=== PATIENT | male | born 1960 | race American Indian/Alaskan Native ===

== ENCOUNTER 2017-11-17 09:50 | Day surgery (SDC) | payer OTHER ==
[~2017-11-17 09:50] MED LIST: NACL 0.9% 1000 ML 1,000 ML IV SCH
[2017-11-17] MEDS ORDERED: DIPRIVAN 10 MG/ML IV ONE ×2 (13:49)
--- NOTE | 2017-11-17 13:54 | Anesthesia Day of Surgery ---
Anesthesia Day of Surgery - Day of Surgery Patient Examined: Yes Patient H&P Reviewed: Yes Patient is NPO: Yes Beta Blockers: No
--- NOTE | 2017-11-17 13:56 | Anesthesia Consultation ---
Anesthesia Consult and Med Hx - Airway Anesthetic Teeth Evaluation: Good ROM Head & Neck: Adequate Mental/Hyoid Distance: Adequate Mallampati Class: Class III Intubation Access Assessment: Possibly Difficult - Pulmonary Exam CTA: Yes - Cardiac Exam Cardiac Exam: No Murmur - Pre-Operative Health Status ASA Pre-Surgery Classification: ASA3 Proposed Anesthetic Plan: MAC - Pulmonary Hx Smoking: No Hx Asthma: No Hx Respiratory Symptoms: No SOB: No COPD: No Home Oxygen Therapy: No Hx Pneumonia: No Hx Sleep Apnea: No - Cardiovascular System Hx Hypertension: Yes - Other Systems Hx Obesity: Yes
[2017-11-17] MEDS ORDERED: XYLOCAINE MPF 2% ONE (14:00)
[2017-11-17] MEDS ORDERED: WATER FOR IRRIG STERILE ONE (14:05)
[2017-11-17] MEDS ORDERED: WATER FOR IRRIG STERILE IR ONE (14:05)
--- NOTE | 2017-11-17 14:39 | Discharge Summary ---
Short Stay Discharge Plan Activity: advance as tolerated Weight Bearing Status: Weight Bear as Tolerated Diet: regular Follow up with: ISAAC MARTIN MD [Primary Care Provider] - 7 Days
--- NOTE | 2017-11-17 14:39 | Operative Report ---
Operative Report Operative Report: Date of procedure: 11/17/2017 Procedure: Colonoscopy with Multiple Hot Biopsy Polypectomies, Polyp Ablations. Attending physician: Loy Ayala MD Phthalic Acid Purifier: Loy Ayala MD Indication: Patient is a 57-year-old male who presents for screening colonoscopy. This colonoscopy serves to evaluate patient so that treatment may be directed based on the findings. Consent: Informed consent was obtained after advising the patient and family regarding nature of this procedure, its indications, potential benefits as well as possible complications including but not limited to bleeding perforation and adverse reaction to medication, infection as well as other cardiopulmonary complications. An informed written and verbal consent was then obtained after due opportunity was provided for questions and answers. Monitoring: Patient was monitored continuously with pulse oximetry and electrocardiographic recordings as well as blood pressure recordings. Vital signs remained stable throughout this procedure with no untoward events. Preoperative assessment: Patient was assessed immediately prior to this procedure for capacity to tolerate monitored anesthesia care and moderate sedation as well as general anesthesia. Patient's ASA classification is 2, Mallampati class is 2, Hyomental distance is 3. Instrument: Room Choicen video colonoscope Medications: Propofol given intravenously in divided doses. For details please refer to anesthesia records. Description of procedure: Patient was placed in the left lateral decubitus position after achieving sedation, a digital rectal examination was performed following which the colonoscope was introduced into the anal verge and advanced to the cecum which was identified by the cecal valve, the appendiceal orifice, as well as by the cecal strap and direct transillumination. The colonoscope was subsequently withdrawn with careful inspection of all mucosal surfaces. Patient tolerated this procedure well and was subsequently taken to the recovery room. The following findings were noted. Findings: Preparation was relatively poor with substantial retained stool in the cecum ascending colon and proximal transverse colon. Patient hot multiple diverticula in the sigmoid colon. Also, in the sigmoid colon, patient had multiple diminutive polyps. These polyps measured from 3-8 mm. 6 of the polyps were removed by hot biopsy polypectomy. 2 of the polyps were ablated completely. All polyps were flat. In the rectum, patient had a diminutive 7 mm polyp that was flat. This was removed by hot biopsy polypectomy. There was a 3 mm flat polyp was ablated. On the retroflexed view of the anal verge, patient had internal hemorrhoids. Impression: Diminutive sigmoid colon/rectal polyps status post hot biopsy polypectomy. Diminutive sigmoid colon/rectal polyps status post ablation. Diverticula disease of the colon. Internal hemorrhoids. Plan: Follow pathology report. High-fiber diet. Repeat colonoscopy in 1 year, due to Poor colonoscopic preparation.
[2017-11-17 15:01] VITALS: BP 119/50
== END 2017-11-17 09:51 | disposition home or self-care (01) ==
LOC: GIO 09:50
PROVIDERS: ATTEND Internal Medicine Gastroenterology
DX: Z12.11 Encounter for screening for malignant neoplasm of colon (principal); K63.5 Polyp of colon; K57.30 Diverticulosis of large intestine without perforation or abscess without bleeding; I10 Essential (primary) hypertension; E78.00 Pure hypercholesterolemia, unspecified; E66.9 Obesity, unspecified; Z68.34 Body mass index [BMI] 34.0-34.9, adult
CPT/HCPCS: 45384; 45388; 88305; J2704; J7030

== ENCOUNTER 2019-01-11 09:44 | Day surgery (SDC) | payer OTHER ==
[2019-01-11] MEDS ORDERED: XYLOCAINE 1% 20 mL ONE (11:00)
[2019-01-11] MEDS ORDERED: DIPRIVAN 10 MG/ML IV ONE ×2 (11:01)
--- NOTE | 2019-01-11 12:01 | Anesthesia Day of Surgery ---
Anesthesia Day of Surgery - Day of Surgery Patient Examined: Yes Patient H&P Reviewed: Yes Patient is NPO: Yes Raghav's Test: N/A
--- NOTE | 2019-01-11 12:02 | Anesthesia Consultation ---
Anesthesia Consult and Med Hx Date of service: 01/11/19 - Airway ROM Head & Neck: Adequate Mental/Hyoid Distance: Adequate Mallampati Class: Class II Intubation Access Assessment: Probably Good - Pulmonary Exam CTA: Yes - Cardiac Exam Cardiac Exam: RRR - Pre-Operative Health Status ASA Pre-Surgery Classification: ASA2 Proposed Anesthetic Plan: General, MAC - Pulmonary Hx Smoking: Yes Hx Asthma: No Hx Respiratory Symptoms: No SOB: No COPD: No Hx Pneumonia: No Hx Sleep Apnea: No - Cardiovascular System Hx Hypertension: Yes - Other Systems Hx Obesity: Yes
--- NOTE | 2019-01-11 12:04 | Operative Report ---
Operative Report Operative Report: Date of procedure: 01/11/2019 Procedure: Colonoscopy. Attending physician: Loy Ayala MD Coating Mixer: Loy Ayala MD Indication: Patient is a 58-year-old male who presents for colonoscopy, because of personal history of colon polyps. A colonoscopy serves to evaluate patient so that treatment may be directed based on the findings. Consent: Informed consent was obtained after advising the patient and family regarding nature of this procedure, its indications, potential benefits as well as possible complications including but not limited to bleeding perforation and adverse reaction to medication, infection as well as other cardiopulmonary complications. An informed written and verbal consent was then obtained after due opportunity was provided for questions and answers. Monitoring: Patient was monitored continuously with pulse oximetry and electrocardiographic recordings as well as blood pressure recordings. Vital signs remained stable throughout this procedure with no untoward events. Preoperative assessment: Patient was assessed immediately prior to this procedure for capacity to tolerate monitored anesthesia care and moderate sedation as well as general anesthesia. Patient's ASA classification is 2, Mallampati class is 2, Hyomental distance is 3. Instrument: Olympus video colonoscope Medications: Propofol given intravenously in divided doses. For details please refer to anesthesia records. Description of procedure: Patient was placed in the left lateral decubitus position after achieving sedation, a digital rectal examination was performed following which the colonoscope was introduced into the anal verge and advanced to the transverse colon. The colonoscope was subsequently withdrawn because of incremental stool density with poor visualization of the colon secondary to significant retained stool with careful inspection of all mucosal surfaces. Patient tolerated this procedure well and was subsequently taken to the recovery room. The following findings were noted. Findings: The preparation was very poor. Patient has some scattered densely adherent semi-formed and liquid stool . There were diverticula seen in the sigmoid colon and descending colon. The colon was examined to the mid transverse colon. The rest of the colon was not visualized secondary to retained stool. On the retroflexed view at the anal verge, patient had internal hemorrhoids. Impression: Incomplete colonoscopic examination. Retained stool Diverticular disease of the colon. Internal hemorrhoids. Plan: High-fiber diet. Schedule Repeat colonoscopy.
--- NOTE | 2019-01-11 12:05 | Discharge Summary ---
Short Stay Discharge Plan Activity: advance as tolerated Weight Bearing Status: Weight Bear as Tolerated Diet: regular Follow up with: ISAAC MARTIN MD [Primary Care Provider] - 7 Days
[2019-01-11 12:31] VITALS: BP 124/75
--- NOTE | 2019-01-11 13:06 | Post Anesthesia Evaluation ---
- Post Anesthesia Evaluation Patient Participated: Yes Airway Patent: Yes Stable Respiratory Function: Yes Nausea/Vomiting: No Temp > 96.8F: Yes Pain Manageable: Yes Adequeate Hydration: Yes Anesthesia Complications: No Block Receding Appropriately: Not Applicable Patient on Ventilator: No
== END 2019-01-11 09:45 | disposition home or self-care (01) ==
LOC: GIO 09:44
PROVIDERS: ATTEND Internal Medicine Gastroenterology
DX: Z12.11 Encounter for screening for malignant neoplasm of colon (principal); K57.30 Diverticulosis of large intestine without perforation or abscess without bleeding; K64.8 Other hemorrhoids; F17.210 Nicotine dependence, cigarettes, uncomplicated; E78.00 Pure hypercholesterolemia, unspecified; I10 Essential (primary) hypertension; E66.9 Obesity, unspecified; Z86.010 Personal history of colon polyps; Z79.899 Other long term (current) drug therapy; Z68.34 Body mass index [BMI] 34.0-34.9, adult; Z98.890 Other specified postprocedural states
CPT/HCPCS: 45378; J2704; J7030